=== PATIENT | female | born 1970 | race Caucasian/White ===

== ENCOUNTER → 2017-03-01 | Outpatient (CLI) | payer OTHER ==
[~2017-03-01] MED LIST: BIRTH CONTROL PO; FISH OIL 1,001000 M2 PO; GLUCOSAMINE CH1 EAC1 PO; NORCO 5-325 TA1 EACH PO; OCELLA TABLET1 EACH PO; PERCOCET 7.5-31 EACH PO; TUMS PO; UNICOMPLEX M TA1 TA1 PO
== END ==
LOC: RAD 12:09
DX: Z12.31 Encounter for screening mammogram for malignant neoplasm of breast (principal)

== ENCOUNTER → 2018-06-06 | Outpatient (CLI) | payer OTHER | LOC: CAT 07:39 | DX: Z13.6 Encounter for screening for cardiovascular disorders (principal); E78.00 Pure hypercholesterolemia, unspecified; I25.10 Atherosclerotic heart disease of native coronary artery without angina pectoris ==

== ENCOUNTER → 2018-06-06 | Outpatient (CLI) | payer OTHER | LOC: BC 07:52 | DX: Z12.31 Encounter for screening mammogram for malignant neoplasm of breast (principal) ==